=== PATIENT | female | born 2000 | race Caucasian/White ===

== ENCOUNTER 2018-07-04 21:37 | Emergency (ER) | payer OTHER ==
[2018-07-04] MEDS ORDERED: Acetaminophen TAB* 325 MG PO ONE (22:38)
--- NOTE | 2018-07-04 22:44 | ED ---
HPI Febrile Illness - HPI Summary HPI Summary: A 18 y/o F presents to ED with c/o fever onset yesterday. She got a cold a few days ago, when the weather worsened, she felt her symptoms worsened. She was able to go to her classes today but felt very disoriented. Associated sx: productive cough with yellow phlegm at onset of her cold, lethargic, mild abd pain, nausea, diarrhea, diffuse joint soreness. Denies: BOYER, rash, SOB, vomiting. She says her friends are all sick. She denies other medical problems. No daily medication. No allergies. She is a [employer] student. - History of Current Complaint Chief Complaint: EDFever Time Seen by Provider: 07/04/18 22:38 Hx Obtained From: Patient Onset/Duration: Started Days Ago - yesterday, Still Present Timing: Constant Initial Severity: Moderate Current Severity: Moderate Pain Intensity: 4 Pain Scale Used: 0-10 Numeric Associated Signs and Symptoms: Cough - productive, Diarrhea, Joint Pain, Nausea , Other: - pos: lethargy, mild abd pain. neg: BOYER, rash, SOB, vomiting - Allergy/Home Medications Allergies/Adverse Reactions: Allergies Allergy/AdvReac Type Severity Reaction Status Date / Time No Known Allergies Allergy Verified 07/04/18 21:43 Home Medications: Home Medications NK [No Home Medications Reported] 07/04/18 [History Confirmed 07/04/18] PMH/Surg Hx/FS Hx/Imm Hx Previously Healthy: Yes Opthamlomology History: Denies: Hx Legally Blind EENT History: Denies: Hx Deafness Neurological History: Denies: Hx Dementia Infectious Disease History: No Infectious Disease History: Denies: Traveled Outside the [place] in Last 30 Days - Social History Occupation: Student Lives: Dormitory/Roommates Review of Systems Positive: Fever, Fatigue - lethargy Positive: Cough - productive. Negative: Shortness Of Breath Positive: Abdominal Pain - mild, Diarrhea, Nausea. Negative: Vomiting Positive: Arthralgia - diffusely Negative: Rash Negative: Headache All Other Systems Reviewed And Are Negative: Yes Physical Exam - Summary Physical Exam Summary: Appearance: Well-appearing, Well-nourished, lying in bed comfortably. Febrile. Skin: Warm, dry, no obvious rash Eyes: sclera anicteric, no conjunctival pallor ENT: mucous membranes moist, pharynx appears normal Neck: Supple, nontender Respiratory: Clear to auscultation, no signs of respiratory distress Cardiovascular: Mildly tachy, Normal S1, S2. No murmurs. Normal distal pulses in tibial and radial bilaterally. Abdomen: Soft, nontender, normal active bowel sounds present Musculoskeletal: Normal, Strength/ROM Intact Neurological: A&Ox3, awake and alert, mentation is normal, speech is fluent and appropriate Psychiatric: affect is normal, does not appear anxious or depressed Triage Information Reviewed: Yes Vital Signs On Initial Exam: Initial Vitals Temp Pulse Resp BP Pulse Ox 101.7 F 86 16 116/87 95 07/04/18 21:39 07/04/18 21:39 07/04/18 21:39 07/04/18 21:39 07/04/18 21:39 Vital Signs Reviewed: Yes Diagnostics - Vital Signs Vital Signs Temp Pulse Resp BP Pulse Ox 07/04/18 21:39 101.7 F 86 16 116/87 95 - Laboratory Result Diagrams: 07/04/18 22:58 07/04/18 22:58 Lab Statement: Any lab studies that have been ordered have been reviewed, and results considered in the medical decision making process. - Radiology CXR Radiology Interpretation Completed By: ED Physician Summary of Radiographic Findings: No acute process. Course/Dx - Course Course Of Treatment: Pt is a 18 y/o F presenting with c/o fever onset yesterday , which likely began as a cold a few days ago. She was able to go to her classes today but felt very disoriented. Associated sx: productive cough with yellow phlegm, lethargic, mild abd pain, nausea, diarrhea, diffuse joint soreness. Denies: BOYER, rash, SOB, vomiting. She says her friends are all sick. She denies other medical problems. No daily medication. No allergies. She is a [place] student. Bloodwork is within normal limits. Rapid influenza A is positive. CXR shows no acute process. Will discharge patient home. - Diagnoses Provider Diagnoses: Influenza A Discharge - Sign-Out/Discharge Documenting (check all that apply): Patient Departure - D/C Patient Received Moderate/Deep Sedation with Procedure: No - Discharge Plan Condition: Stable Disposition: HOME Patient Education Materials: Influenza (ED) Forms: *School Release Referrals: [facility] [Outside] - Billing Disposition and Condition Condition: STABLE Disposition: Home - Attestation Statements Document Initiated by Abdelrahman: Yes Documenting Scribe: Sean Sherman Provider For Whom Abdelrahman is Documenting (Include Credential): Dr. Dean Lester MD Scribe Attestation: Sean Randle, scribed for Dr. Dean Lester MD on 07/05/18 at 0056. Scribe Documentation Reviewed: Yes Provider Attestation: The documentation as recorded by the abdelrahman, Sean Sherman accurately reflects the service I personally performed and the decisions made by me, Dr. Dean Lester MD Status of Scribe Document: Viewed
[2018-07-04 23:08] LABS: ABS Basophils 0 10^3/ul (0-0.2); ABS Eosinophils 0 10^3/ul (0-0.6); ABS Lymphocytes 1.3 10^3/ul (1.0-4.8); ABS Monocytes 0.5 10^3/ul (0-0.8); ABS Nucleated RBC 0 10^3/ul; Eosinophil % 0.1 %; Hematocrit 41 % (35-47); Hemoglobin 13.6 g/dl (12.0-16.0); Mean Corpuscular HGB Conc 33 g/dl (31-36); Mean Corpuscular Hemoglobin 31 pg (27-31); Mean Corpuscular Volume 94 fL (80-97); Mean Platelet Volume 8.7 fL (7.4-10.4); Nucleated Red Blood Cells % 0.1; Platelet Count 203 10^3/ul (150-450); Red Blood Count 4.33 10^6/ul (4.00-5.40); Red Cell Distribution Width 12 % (10.5-15); White Blood Count 3.8 10^3/ul (3.5-10.8)
[2018-07-04 23:15] LABS: Influenza A Molecular POSITIVE (Negative)
[2018-07-04 23:23] LABS: INR 1.02 (0.77-1.02)
[2018-07-04 23:25] LABS: Albumin 4.8 g/dL (3.2-5.2); Albumin/Globulin Ratio 1.3 (1-3); BUN/Creatinine Ratio 15.7 (8-20); Calcium 9.3 mg/dL (8.6-10.3); EGFR African American 83.6 (>60); EGFR Non-African American 69.1 (>60); Globulin 3.6 g/dL (2-4); Potassium 3.6 mmol/L (3.5-5.0); Total Bilirubin 0.3 mg/dL (0.2-1.0); Total Protein 8.4 g/dL (6.4-8.9)
[2018-07-04 23:51] VITALS: BP 111/77
--- NOTE | 2018-07-05 15:33 | PN ---
Progress Note - Progress Note Date of Service: 07/04/18 Note: Pt. seen in ED last night dx with influenza. Final CXR read per radiology: IMPRESSION: THERE IS PATCHY OPACIFICATION OF LEFT LUNG BASE WHICH MAY BE AN ARTIFACT OF TECHNIQUE AND BODY HABITUS, THOUGH EARLY LINGULAR CONSOLIDATIONS WITHIN THE DIFFERENTIAL. RECOMMEND FOLLOW-UP UNTIL RESOLUTION TO EXCLUDE UNDERLYING PULMONARY PARENCHYMAL PATHOLOGY. Attempted to call pt. today at 1331 with no answer. Message left to return call. Will attempt to call pt. again tomorrow.
--- NOTE | 2018-07-06 19:41 | PN ---
Progress Note - Progress Note Date of Service: 07/06/18 Note: Patient returned phone call left by Lyle Yip regarding chest x-ray results from visit on 07/04/18. Patient was advised today there was a patchy infiltrate in left lower lobe that could possibly be pneumonia. Patient states she is no longer febrile, feeling generally better, but did have persistent productive cough. Rx for azithromycin was sent to her pharmacy at [facility] to cover possibility of pneumonia. Patient acknowledged and approved plan.
== END 2018-07-04 23:50 | disposition home or self-care (01) ==
LOC: ED 21:37
DX: J10.1 Influenza due to other identified influenza virus with other respiratory manifestations (principal)
CPT/HCPCS: 36415; 71046; 80053; 83605; 84484; 85025; 85610; 87040; 99283; A9270-GY